=== PATIENT | male | born 1950 | race Caucasian/White ===

== ENCOUNTER → 2016-12-21 | Outpatient (CLI) | payer MEDICARE ==
--- NOTE | ~2016-12-21 | CT137 ---
[facility] A Service of [facility] RADIOLOGY TEXT RESULTS PATIENT: LILIANA MO III LOCATION: [facility] : 46 UNIT #: [id number] AGE: [address]: Tod Darden MD SEX: M ORDER DR: [id number] [facility]. [place], [place] [address] [id number] O MR#: [id number] [facility] #: [id number] NAME: LILIANA MO : 1950 SEX: M STUDY DATE/TIME: 12/21/2016 9:05 UNIT: [facility] ROOM: STUDY DESCRIPTION: CT Lung Screening annual Attending Physician: Tod Darden M.D. Ordering Physician: Tod Darden M.D. Primary Care Physician: Tod Darden M.D. MEDICAL IMAGING REPORT This report is preliminary unless electronic signature is present EXAM CT of the chest without contrast. Lung cancer screening. INDICATIONS 66-year-old male with 81 pack-year total smoking history. He is a current smoker. TECHNIQUE CT of the chest was performed without contrast using the low-dose lung cancer screening protocol. CT dose index 2.95 mGy. Coronal and sagittal reformatted images were obtained. This CT exam was performed with one or more of the following radiation dose reduction techniques: automatic exposure control, adjustment of mA and/or kV according to patient size, and iterative reconstruction. Comparison with 12/24/2015 FINDINGS Emphysema. There is no suspicious pulmonary nodule. Scattered granulomatous calcifications in the right lower lobe. Stable tubular density in the right lower lobe likely impacted mucus impacted bronchial. There is no lymphadenopathy or pleural effusion. Coronary artery calcification. Limited imaging of the upper abdomen is unremarkable. Bone windows are unremarkable. IMPRESSION Stable chest CT. Emphysema. No suspicious pulmonary nodule. ACR lung RADS category 2. Followup annual low-dose lung cancer screening chest CT in on year. Dictated by... Stanley Swan M.D. THIS IS AN ELECTRONICALLY VERIFIED REPORT [facility] A Service of [facility] RADIOLOGY TEXT RESULTS PATIENT: LILIANA MO III LOCATION: [facility] : 46 UNIT #: [id number] AGE: [address]: Tod Darden MD SEX: M ORDER DR: Stalney Swan M.D. at 12/23/2016 9:00 AM Charley TD: 12/21/2016 11:40 JOB #: [id number] MEDICAL IMAGING REPORT Page 1 of 1 COPY
== END | disposition home or self-care (01) ==
LOC: CCAT 08:36
DX: F17.210 Nicotine dependence, cigarettes, uncomplicated (principal); J43.9 Emphysema, unspecified
CPT/HCPCS: G0297